=== PATIENT | female | born 1995 | race Caucasian/White ===

== ENCOUNTER 2024-10-20 10:25 | Outpatient (CLI) | payer MEDICARE, SELFPAY ==
--- OUTSIDE RECORDS SUMMARY | 2024-10-20 10:52 | XMS_ITS | Clinical Summary ---
Author Organization [facility] Address [address] [address] Phone Care Team Providers Care Regional Truck Driver Name Role Phone Bright Ventura MD Primary Care Provider [phone] Allergies No known active allergies Medications triamcinolone (KENALOG) 0.1 % Cream Application Site: apply to left knee daily (Description and Location) 80 g 3 Active Active Problems No known active problems Immunizations Immunization Administration Dates Next Due DTAP VACCINE 12/28/2015,11/07/2002 DTAP VACCINE, UNSPECIFIED FORMULATION ,12/29/1998,06/11/1998,01/07 DTP Vaccine 12/29/1998, 9,01/07/1998,11/25 HIB Vaccine (PRP-T) 12/28/2015, 9,06/11/1998,01/07,1997 Hepatitis A Vaccine, Pediatric/adolescent, 2 Dose Schedule 08/04/2016,01/10/2016 Hepatitis B Vaccine, Pediatric/adolescent 1997 Hepatitis B Vaccine,unspecif ied Formulation 1997,1997 Human Papillomavirus (HPV) 9 -valent Vaccine 01/10/2016 Influenza Vaccine, Quadrivalent, PF 02/22/2021,0 04/15/2020 Influenza Vaccine,quadrivale nt Less Than 3s 08/04/2016,01/25/2016,12/28/2015 MMR Vaccine 11/07/2002,11/03/1998 Meningococcal Vaccine 01/10/2016 OPV 12/29/1998,06/11/1998,01/07/1998 Polio Vaccine,unspecified Formulation 1997 TDAP Vaccine 04/15/2020,11/01/2012 Varicella Vaccine Live 01/10/2016,11/11/2001 Family History Medical History Relation Name Comments No Known Problems Brother Asthma Father Congestive Heart Failure Father Drug Abuse Mother Relation Name Status Comments Brother Alive Father Alive Mother Social History Tobacco Use Types Packs/Day Years Used Date Smoking Tobacco: Never Smokeless Tobacco: Never Tobacco Cessation:Counseling Given: No Alcohol Use Standard Drinks/Week Comments Not Currently 0 (1 standard drink = 0.6 oz pur e alcohol) PHQ-2 Answer Date Recorded Total Score - Questions 1-9 1 05/2021 Sexually Active Control Partners Comments Not Currently None Comments No Sex and Gender Information Value Date Recorded Sex Assigned at Not on file Legal Sex Female 8:10 PM CDT Gender Identity Not on file Sexual Orientation Not on file Last Filed Vital Signs Vital Sign Reading Time Taken Comments Blood Pressure 114/68 06/27/2022 5:38 PM CDT Pulse 90 06/27/2022 5:38 PM CDT Temperature 36.3 C (97.4 F) 06/27/2022 5:38 PM CDT Respiratory Rate 20 06/27/2022 5:38 PM CDT Oxygen Saturation 97% 06/27/2022 5:38 PM CDT Inhaled Oxygen Concentration - - Weight 168.1 kg (370 lb 9.6 oz) 06/27/2022 5:38 PM CDT Height 167.6 cm (5' 6) 06/27/2022 5:38 PM CDT Body Mass Index 59.82 06/27/2022 5:38 PM CDT Plan of Treatment Health Maintenance Due Date Last Done Comments Hepatitis C Virus (HCV) Screening 1997 Hepatitis B Immunization (4 of 4 - 4-dose series) 1997 1997, 1997, 1997 Human Papillomavirus (HPV) Immunization (2 - 3-dose series) 02/07/2016 01/10/2016 Pap Smear 2018 SARS-COV-2 Immunization ( season) 2023 Influenza Immunization (#1) 11/24/202401/26, 04/15/2020, 08/04/2016, Additional history exists DTaP/Tdap/Td Immunization (9 - Td or Tdap) 04/15/2030 04/15/2020, 12/28/2015, 11/01/2012, Additional history exists Respiratory Syncytial Virus (RSV) Immunization (Adult) (1 - 1-dose 75+ series) 2072 Meningococcal Immunization (ACWY) Completed 01/10/2016 Pneumococcal Immunization Combined Aged Out No longer eligible based on patient's age to complete this topic Rotavirus Immunization Aged Out No lo nger eligible based on patient's age to complete this topic Insurance MEDICARE Care Teams Regional Truck Driver Relationship Specialty Start Date End Date Bright Ventura MD [address] [place] [address] PCP - General Family Medicine 05/26/21
--- OUTSIDE RECORDS SUMMARY | 2024-10-20 10:52 | XMS_ITS | Referral Summary ---
Author Organization [facility] [address] [facility] Address [address] [place] [address] Care Team Providers Care Campground Cleaning Attendant Name Role Phone Alek Kenyon MD Primary Care Provider [phone] Allergies No known active allergies Medications No known medications Active Problems Problem Noted Date Diagnosed Date Class 3 severe obesity due t o excess calories without serious comorbidity with body mass index (BMI) of 50.0 to 59.9 in adult 05/04/2020 Assessment & Plan (02/22/2021 2:10 PM HORSES OR MULES TEAMSTER): Not well controlled, patient has been working on cutting back on extra portions; though has had some increased caloric intake during holidays Encouraged patient to continue with portion control; start exercise program Encouraged patient family to work on small goals and build upon small success is for long-term Weight loss Assessment & Plan (07/09/2020 8:36 AM CDT): Stable, patient weight remains elevated; continue to encourage dietary restriction (which patient is now doing) -encourage patient to start activities and exercise in order to help with weight loss Assessment & Plan (05/14/2020 2:55 PM HORSES OR MULES TEAMSTER): Improving has some weight loss from last visit; will continue to monitor and encourage patient and family to work on behavioral changes to reduce calorie intake. Assessment & Plan (05/04/2020 9:38 AM HORSES OR MULES TEAMSTER): Not well controlled, has eating disorder, eats large portions of food Discussed with patient and family setting limits and routines -importance of limiting sizes of snacks -limit options to get second portions atmeals -increase activity through day, especially has patient is not current working General learning disability 05/04/2020 Assessment & Plan (02/22/2021 2:11 PM HORSES OR MULES TEAMSTER): Stable, patient is working getting employment and ride services Patient and family working with registered nurse hh case manager to help identify potential employmentopportunities Assessment & Plan (07/09/2020 8:36 AM CDT): Stable, patient referred to psychology at [facility] for evaluation and diagnosis to determine ability to care for self -encouraged parents to get records from high school to better understand learned needs Assessment & Plan (05/14/2020 2:58 PM HORSES OR MULES TEAMSTER): Unknown disability, encouraged family to get IEP from high school -patient may require family counseling to learning coping skills; anger management and working in general family interactions. Assessment & Plan (05/04/2020 9:39 AM HORSES OR MULES TEAMSTER): Patient is limited in tasks she can perform, takes time to learn new tasks and does not respond well to changes in routine -gets frustrated learning new tasks and cries when she is challenged Encouraged patient to take time to learn new functions, learn new skills Anxiety and depression 05/04/2020 Assessment & Plan (02/22/2021 2:11 PM HORSES OR MULES TEAMSTER): Continues to have ups and Downs and mood changes with parents; continue to monitor at this time no medication required Assessment & Plan (07/09/2020 8:35 AM CDT): Improvement of control of moods; patient has fewer outbursts, no longer need medication for control of labile emotions -likely adjustment disorder in setting of moving to new house with new parental figures. -continue to monitor, can restart medication if needed at future date. Assessment & Plan (05/14/2020 2:56 PM HORSES OR MULES TEAMSTER): Improving, patient and family notice changes, decreased frustration, working on coping skills to better manage frustration and difficulty learning new tasks. Assessment & Plan (05/04/2020 9:40 AM HORSES OR MULES TEAMSTER): Has difficulty with new tasks, shuts downs and cries from any criticism -will start bupropion for anxiety; low dose, may also help some with eating disorder Immunizations Immunization Administration Dates Next Due DTP 12/29/1998, 9,01/07/1998,11/25 DTaP 12/28/2015,11/07/2002 DTaP, Unspecified 11/07/2002, 9,06/11/1998,01/07,1997 HPV9 01/10/2016 Hep A, Pediatric 08/04/2016,01/10/2016 Hep B, Adolescent or Pediatric 1997 Hep B, Unspecified 01/07/1998,1997, 998 HiB 12/29/1998, 9,01/07/1998,11/25 Hib (PRP-T) 12/28/2015, 9,06/11/1998,01/07,1997 Influenza, Quadrivalent, Spl it, Pediatric, Preservative Free, Intramuscular 08/04/2016,01/25/2016,12/28/2015 Influenza, Quadrivalent, Spl it, Preservative Free, Intramuscular 02/22/2021,04/15/2020 MMR 11/07/2002,11/03/1998 Meningococcal MCV4P (Menactra) 01/10/2016 OPV 12/29/1998,06/11/1998,01/07/1998 Polio, Unspecified 11/07/2002, 9,06/11/1998,01/07,1997 Tdap 04/15/2020,11/01/2012 Varicella 01/10/2016,11/11/2001 Social History Tobacco Use Types Packs/Day Years Used Date Smoking Tobacco: Never Smokeless Tobacco: Never Alcohol Use Standard Drinks/Week Comments Never 0 (1 standard drink = 0.6 oz pur e alcohol) AUDIT-C Answer Date Recorded Q1: How often do you have a drink containing alc ohol? Never 02/22/2021 Average Number of Drinks Not on file Q3: How often do you have si x or more drinks on one occasion? Never 02/22/2021 PHQ-2 Answer Date Recorded PHQ-2 Total Score (If total score is 3 or more points, staff should administer the PHQ-9) 0 06/24/2020 Personal Safety Answer Date Recorded Getting School Help Needed Not on file 06/08 Comments No Sex and Gender Information Value Date Recorded Sex Assigned at Not on file Legal Sex Female 7:44 PM HORSES OR MULES TEAMSTER Gender Identity Not on file Sexual Orientation Not on file Occupation Industry Job Start Date Job End Date N/A Not on file Not on file Not on file Last Filed Vital Signs Vital Sign Reading Time Taken Comments Blood Pressure 122/78 02/22/2021 11:56 AM HORSES OR MULES TEAMSTER Pulse 96 02/22/2021 11:56 AM HORSES OR MULES TEAMSTER Temperature 36.7 C (98 F) 02/22/2021 11:56 AM HORSES OR MULES TEAMSTER Respiratory Rate - - Oxygen Saturation 97% 02/22/2021 11: 56 AM HORSES OR MULES TEAMSTER Inhaled Oxygen Concentration - - Weight 159.4 kg (351 lb 6.4 oz) 11:56 AM HORSES OR MULES TEAMSTER Height 165.1 cm (5' 5) 02/22/2021 11:5 6 AM HORSES OR MULES TEAMSTER Body Mass Index 58.48 02/22/2021 11:56 AM HORSES OR MULES TEAMSTER Plan of Treatment Not on file Insurance MEDICARE Care Teams Campground Cleaning Attendant Relationship Specialty Start Date End Date Alek Kenyon MD [address] [place] [address] PCP - General Family Medicine 04/15/20
--- OUTSIDE RECORDS SUMMARY | 2024-10-20 10:52 | XMS_ITS | Clinical Summary ---
Author Organization [facility] 163 [facility] Address [address] [place] [address] Care Team Providers Care X Ray Technologist Name Role Phone Alek Kenyon MD Primary Care Provider [phone] Allergies No known active allergies Medications No known medications Active Problems Problem Noted Date Diagnosed Date Class 3 severe obesity due t o excess calories without serious comorbidity with body mass index (BMI) of 50.0 to 59.9 in adult 05/04/2020 Assessment & Plan (02/22/2021 2:10 PM SALT MAKER): Not well controlled, patient has been working [...] loss Assessment & Plan (05/14/2020 2:55 PM SALT MAKER): Improving has some weight loss from last visit; will continue to monitor and encourage patient and family to work on behavioral changes to reduce calorie intake. Assessment & Plan (05/04/2020 9:38 AM SALT MAKER): Not well controlled, has eating disorder, eats large portions of food Discussed with patient and family setting limits and routines -importance of limiting sizes of snacks -limit options to get second portions atmeals -increase activity through day, especially has patient is not current working General learning disability 05/04/2020 Assessment & Plan (02/22/2021 2:11 PM SALT MAKER): Stable, patient is working getting employment and ride services Patient and family working with field case manager to help identify potential employmentopportunities Assessment & Plan (07/09/2020 8:36 AM CDT): Stable, patient referred to psychology at [facility] for evaluation and diagnosis to determine ability to care for self -encouraged parents to get records from high school to better understand learned needs Assessment & Plan (05/14/2020 2:58 PM SALT MAKER): Unknown disability, encouraged family to get IEP from high school -patient may require family counseling to learning coping skills; anger management and working in general family interactions. Assessment & Plan (05/04/2020 9:39 AM SALT MAKER): Patient is limited in tasks she can perform, takes time to learn new tasks and does not respond well to changes in routine -gets frustrated learning new tasks and cries when she is challenged Encouraged patient to take time to learn new functions, learn new skills Anxiety and depression 05/04/2020 Assessment & Plan (02/22/2021 2:11 PM SALT MAKER): Continues to have ups and Downs and [...] date. Assessment & Plan (05/14/2020 2:56 PM SALT MAKER): Improving, patient and family notice changes, decreased frustration, working on coping skills to better manage frustration and difficulty learning new tasks. Assessment & Plan (05/04/2020 9:40 AM SALT MAKER): Has difficulty with new tasks, shuts downs [...] Unspecified 11/07/2002, 9,06/11/1998,01/07,1997 Tdap 04/15/2020,11/01/2012 Varicella 01/10/2016,11/11/2001 Medical History Medical History Date Comments Depression Anxiety Eating disorder Learning difficulty Family History Medical History Relation Name Comments Asthma Father Depression Father Early Mother drug overdose Mother Relation Name Status Comments Brother Alive Father Alive Mother (Age 32) Social History Tobacco Use Types Packs/Day Years [...] on file Legal Sex Female 7:44 PM SALT MAKER Gender Identity Not on file Sexual Orientation Not on file Occupation Industry Job Start Date Job End Date N/A Not on file Not on file Not on file Obstetrics History Para Term AB IAB SAB Ectopic Multiple Livin g Live Births 0 0 0 0 0 0 0 0 0 0 0 Last Filed Vital Signs Vital Sign Reading Time Taken Comments Blood Pressure 122/78 02/22/2021 11:56 AM SALT MAKER Pulse 96 02/22/2021 11:56 AM SALT MAKER Temperature 36.7 C (98 F) 02/22/2021 11:56 AM SALT MAKER Respiratory Rate - - Oxygen Saturation 97% 02/22/2021 11: 56 AM SALT MAKER Inhaled Oxygen Concentration - - Weight 159.4 kg (351 lb 6.4 oz) 11:56 AM SALT MAKER Height 165.1 cm (5' 5) 02/22/2021 11:5 6 AM SALT MAKER Body Mass Index 58.48 02/22/2021 11:56 AM SALT MAKER Plan of Treatment Not on file Insurance MEDICARE Care Teams X Ray Technologist Relationship Specialty Start Date End Date Alek Kneyon MD [address] [place] [address] PCP - General Family Medicine 04/15/20
[2024-10-20 18:45] LABS: Hematocrit 42.3 % (37.0-47.0); Hemoglobin 12.9 g/dL (12.0-15.0); Mean Corpuscular HGB Conc 30.5 g/dl (32-36); Mean Corpuscular Hemoglobin 26.9 pg (26-34); Mean Corpuscular Volume 88.1 fl (80-100); Platelet Count Result 334 k/mm3 (150-375); Red Blood Count 4.80 M/mm3 (4.2-5.4); White Blood Count 8.8 K/mm3 (4.5-10.0)
[2024-10-20 19:23] LABS: Hemoglobin A1C 5.7 % (<5.7)
[2024-10-20 19:27] LABS: Alanine Aminotransferase 20 U/L (6-35); Albumin Level 4.0 g/dL (3.5-5.1); Alkaline Phosphatase 71 U/L (38-126); Anion Gap 11 mmol/L (4-12); Aspartate Amino Transferase 111 U/L (14-36); Bilirubin,Total 0.4 mg/dL (0.2-1.3); Blood Urea Nitrogen 17 mg/dL (7-17); Calcium 9.4 mg/dL (8.4-10.2); Carbon Dioxide 23 mmol/L (22-30); Chloride 106 mmol/L (98-107); Cholesterol 150 mg/dL (0-200); Estimated Glomerular Filt Rate > 60; Glucose 89 mg/dL (65-110); HDL Direct 31 mg/dL; Potassium 4.0 mmol/L (3.4-5.0); Sodium 140 mmol/L (137-145); Total Protein 7.9 g/dL (6.3-8.2); Triglycerides 140 mg/dL (<150)
[2024-10-20 19:38] LABS: Iron 51 ug/dL (37-170)
[2024-10-20 19:47] LABS: Percent Iron Saturation 16 % (20-50)
[2024-10-20 20:05] LABS: Thyroid Stimulating Hormone 1.760 uIU/mL (0.465-4.680)
[2024-10-20 23:58] LABS: Vitamin B12 465.0 pg/mL (239-931)
[2024-10-23 13:09] LABS: ANA by IFA Rfx Titer/Pattern Positive (.); ANA by IFA Rfx YES YES
== END 2024-10-20 10:26 | disposition home or self-care (01) ==
LOC: ANHBWCLAB 10:26
PROVIDERS: PCP Nurse Practitioner Adult Health; Visit Provider Nurse Practitioner Adult Health
DX: L30.8 Other specified dermatitis (principal); R53.83 Other fatigue; E66.01 Morbid (severe) obesity due to excess calories; Z68.44 Body mass index [BMI] 60.0-69.9, adult
CPT/HCPCS: 36415; 80053; 80061; 82306; 82607; 82746; 83036; 83540; 83550; 84443; 85027; 85652; 86038; 86364

== ENCOUNTER 2025-01-21 15:28 | Outpatient (CLI) | payer MEDICARE, SELFPAY ==
--- OUTSIDE RECORDS SUMMARY | 2025-01-21 17:32 | XMS_ITS | Clinical Summary ---
Author Organization [facility] 163 [facility] Address [address] [facility] [place] [address] Care Team Providers Care Hand Rug Cleaner Name Role Phone Kitty Mills NP Primary Care Provider [phone] Allergies No known active allergies Medications No known medications Active Problems Problem Noted Date Diagnosed Date Class 3 severe obesity due t o excess calories without serious comorbidity with body mass index (BMI) of 50.0 to 59.9 in adult 05/04/2020 Assessment & Plan (02/22/2021 2:10 PM VESSEL ORDINARY SEAMAN): Not well controlled, patient has been working [...] loss Assessment & Plan (05/14/2020 2:55 PM VESSEL ORDINARY SEAMAN): Improving has some weight loss from last visit; will continue to monitor and encourage patient and family to work on behavioral changes to reduce calorie intake. Assessment & Plan (05/04/2020 9:38 AM VESSEL ORDINARY SEAMAN): Not well controlled, has eating disorder, eats large portions of food Discussed with patient and family setting limits and routines -importance of limiting sizes of snacks -limit options to get second portions atmeals -increase activity through day, especially has patient is not current working General learning disability 05/04/2020 Assessment & Plan (02/22/2021 2:11 PM VESSEL ORDINARY SEAMAN): Stable, patient is working getting employment and ride services Patient and family working with egg caser to help identify potential employmentopportunities Assessment & Plan (07/09/2020 8:36 AM CDT): Stable, patient referred to psychology at [facility] for evaluation and diagnosis to determine ability to care for self -encouraged parents to get records from high school to better understand learned needs Assessment & Plan (05/14/2020 2:58 PM VESSEL ORDINARY SEAMAN): Unknown disability, encouraged family to get IEP from high school -patient may require family counseling to learning coping skills; anger management and working in general family interactions. Assessment & Plan (05/04/2020 9:39 AM VESSEL ORDINARY SEAMAN): Patient is limited in tasks she can perform, takes time to learn new tasks and does not respond well to changes in routine -gets frustrated learning new tasks and cries when she is challenged Encouraged patient to take time to learn new functions, learn new skills Anxiety and depression 05/04/2020 Assessment & Plan (02/22/2021 2:11 PM VESSEL ORDINARY SEAMAN): Continues to have ups and Downs and [...] date. Assessment & Plan (05/14/2020 2:56 PM VESSEL ORDINARY SEAMAN): Improving, patient and family notice changes, decreased frustration, working on coping skills to better manage frustration and difficulty learning new tasks. Assessment & Plan (05/04/2020 9:40 AM VESSEL ORDINARY SEAMAN): Has difficulty with new tasks, shuts downs and cries from any criticism -will start bupropion for anxiety; low dose, may also help some with eating disorder Encounters Date Type Department Care Team Description 11/05/2024 1:33 PM CDT - 11/05/2024 11:59 PM CDT Hospital Encounter [facility] [address] [place] [address] Abnormal levels of other serum enzymes Discharge Disposition: Discharge to home or self care from Last 3 Months Immunizations Immunization Administration Dates Next Due DTP [...] Average Number of Drinks Not on file 021 Q3: How often do you have si x or more drinks on one occasion? Never 02/22/2021 PHQ-2 Answer Date Recorded PHQ-2 Total Score (If total score is 3 or more points, staff should administer the PHQ-9) 0 06/24/2020 Comments No Sex and Gender Information Value Date Recorded Sex Assigned at Not on file Legal Sex Female 7:44 PM VESSEL ORDINARY SEAMAN Gender Identity Not on file Sexual Orientation [...] Comments Blood Pressure 122/78 02/22/2021 11:56 AM VESSEL ORDINARY SEAMAN Pulse 96 02/22/2021 11:56 AM VESSEL ORDINARY SEAMAN Temperature 36.7 C (98 F) 02/22/2021 11:56 AM VESSEL ORDINARY SEAMAN Respiratory Rate - - Oxygen Saturation 97% 02/22/2021 11: 56 AM VESSEL ORDINARY SEAMAN Inhaled Oxygen Concentration - - Weight 159.4 kg (351 lb 6.4 oz) 021 11:56 AM VESSEL ORDINARY SEAMAN Height 165.1 cm (5' 5) 02/22/2021 11:5 6 AM VESSEL ORDINARY SEAMAN Body Mass Index 58.48 02/22/2021 11:56 AM VESSEL ORDINARY SEAMAN Plan of Treatment Health Maintenance Due Date Last Done Comments Cervical Cancer Screening 1997 Hepatitis C Screening 1997 Regular Well Visit/Exam 18-64 07/01/2015 HPV Vaccines (2 - 3-dose series) 02/07/2016 01/10/2016 Depression Screening 06/24/2021 06/24/2020, 05/13/2020, 05/13/2020, Additional history exists Influenza Vaccine (#1) 2024 , 04/15/2020, 08/04/2016, Additional history exists DTaP/Tdap/Td Vaccine (9 - Td or Tdap) 04/15/2030 04/15/2020, 12/28/2015, 11/01/2012, Additional history exists Hepatitis B Screening Completed 01/07/1998 , 1997, 1997, Additional history exists Varicella Vaccines Completed 01/10/2016, 11/11/2001 Pneumococcal vaccine <65 Aged Out No longer eligible based on patient's age to complete this topic Procedures Procedure Name Priority Date/Time Associated Diagnosis Comments US ABDOMEN LIMITED Schedule Routine, Read Routine (OP Routine) 11/05/2024 2:01 PM CDT Abnormal levels of other serum enzymes from Last 3 Months Results * US Abdomen Limited (11/05/2024 2:01 PM CDT) Anatomical Region Laterality Modality Abdomen N/A Ultrasound 11/24/2024 2:09 PM CDT Narrative 11/24/2024 2:10 PM CDT EXAM DESCRIPTION: US ABDOMEN LIMITED REASON FOR STUDY: R74.8 Elevated liver enzymes. TECHNIQUE: Ultrasound of the right upper quadrant of the abdomen was performed with grayscale and color doppler. COMPARISON: None FINDINGS: PANCREAS: Visualized portions of the pancreas are within normal limits. Portions of the pancreatic body and tail are obscured due to bowel gas. LIVER: The liver is grossly normal in echogenicity. There is no definite sonographic evidence of a focal hepatic lesion. There is documentation of hepatopetal flow in the portal vein. GALLBLADDER: There is a large gallstone noted near the gallbladder neck measuring up to 1.4 cm. The gallbladder wall measures 0.2 cm in thickness. There is no definite sonographic evidence of pericholecystic fluid. There is a negative sonographic Doyle's sign. BILIARY: There is no intrahepatic or extrahepatic biliary ductal dilatation. Common bile duct measures 0.4 cm in diameter. RIGHT KIDNEY: Normal size. Normal echogenicity. No solid mass or cyst. No hydronephrosis. Measures 14.2 x 6.6 x 6.5 cm. OTHER: No other significant findings. IMPRESSION: 1. No definite sonographic evidence of focal hepatic lesion. 2. Cholelithiasis without definite sonographic evidence of cholecystitis. If there is clinical concern for cholecystitis, then further evaluation with HIDA scan is recommended. THIS IS AN ELECTRONICALLY VERIFIED FINAL REPORT 11/24/2024 2:10 PM - Electronically signed by Chana Beach D.O. PS: PS Report ID: [id number] Reading Location: [id number] Procedure Note Beach Chana Urbano, DO - 11/24/2024 EXAM DESCRIPTION: US ABDOMEN LIMITED REASON FOR STUDY: R74.8 Elevated liver enzymes. TECHNIQUE: Ultrasound of the right upper quadrant of the abdomen wasperformed with grayscale and color doppler. COMPARISON: None FINDINGS: PANCREAS: Visualized portions of the pancreas are within normal limits. Portions of the pancreatic body and tail are obscured due to bowel gas. LIVER: The liver is grossly normal in echogenicity. There is nodefinite sonographic evidence of a focal hepatic lesion. There is documentation of hepatopetal flow in the portal vein. GALLBLADDER: There is a large gallstone noted near the gallbladder neck measuring up to 1.4 cm. The gallbladder wall measures 0.2 cm inthickness. There is no definite sonographic evidence of pericholecystic fluid. Thereis a negative sonographic Doyle's sign. BILIARY: There is no intrahepatic or extrahepatic biliary ductaldilatation. Common bile duct measures 0.4 cm in diameter. RIGHT KIDNEY: Normal size. Normal echogenicity. No solid mass or cyst.No hydronephrosis. Measures 14.2 x 6.6 x 6.5 cm. OTHER: No other significant findings. IMPRESSION: 1. No definite sonographic evidence of focal hepatic lesion. 2. Cholelithiasis without definite sonographic evidence ofcholecystitis. If there is clinical concern for cholecystitis, then further evaluation withHIDA scan is recommended. THIS IS AN ELECTRONICALLY VERIFIED FINAL REPORT 11/24/2024 2:10 PM - Electronically signed by Chana Beach D.O. PS: PS Report ID: [id number] Reading Location: [id number] Kitty Mills NP IMG US PROCEDURES Final Result from Last 3 Months Insurance MEDICARE [facility] MEDICARE HMO Care Teams Hand Rug Cleaner Relationship Specialty Start Date End Date Kitty Mills NP [address] [place] [address] [place] [address] PCP - General Nurse Practitioner 11/04/24
--- OUTSIDE RECORDS SUMMARY | 2025-01-21 17:32 | XMS_ITS | Clinical Summary ---
Author Organization [facility] Address [address] [address] Phone Care Team Providers Care Telecommunication Operator Name Role Phone Bright Ventura MD Primary Care Provider [phone] Allergies No known active allergies Medications triamcinolone [...] Immunization (2 - 3-dose series) 02/07/2016 01/10/2016 Medicare Initial AWV [id number] 06/24/2018 Pap Smear 2018 Influenza Immunization (#1) 11/24/202401/26, 04/15/2020, 08/04/2016, Additional history exists SARS-COV-2 Immunization ( - 2023- season) 2024 DTaP/Tdap/Td Immunization (9 - Td or Tdap) [...] complete this topic Insurance MEDICARE Care Teams Telecommunication Operator Relationship Specialty Start Date End Date Bright Ventura MD [address] [place] [address] PCP - General Family Medicine 05/26/21
[2025-01-21 18:53] LABS: Alanine Aminotransferase 28 U/L (6-35); Albumin Level 4.3 g/dL (3.5-5.1); Alkaline Phosphatase 81 U/L (38-126); Anion Gap 10 mmol/L (4-12); Aspartate Amino Transferase 74 U/L (14-36); Bilirubin,Total 0.4 mg/dL (0.2-1.3); Blood Urea Nitrogen 15 mg/dL (7-17); Calcium 9.3 mg/dL (8.4-10.2); Carbon Dioxide 24 mmol/L (22-30); Chloride 104 mmol/L (98-107); Estimated Glomerular Filt Rate > 60; Glucose 101 mg/dL (65-110); Sodium 138 mmol/L (137-145); Total Protein 8.1 g/dL (6.3-8.2)
[2025-01-21 19:01] LABS: Potassium 4.0 mmol/L (3.4-5.0)
== END 2025-01-21 15:29 | disposition home or self-care (01) ==
LOC: ANHBWCLAB 15:29
PROVIDERS: PCP Nurse Practitioner Adult Health; Visit Provider Nurse Practitioner Adult Health
DX: R74.8 Abnormal levels of other serum enzymes (principal); Z00.00 Encounter for general adult medical examination without abnormal findings; E55.9 Vitamin D deficiency, unspecified
CPT/HCPCS: 36415; 80048; 80076; 82306